=== PATIENT | female | born 1980 | race American Indian/Alaskan Native ===

== ENCOUNTER 2022-02-22 19:18 | Emergency (ER) | payer SELFPAY ==
[2022-02-22 19:44] VITALS: BP 140/93
== END 2022-02-23 04:00 | disposition left against medical advice (07) ==
LOC: ED 19:18
DX: S49.90XA Unspecified injury of shoulder and upper arm, unspecified arm, initial encounter (principal); Z53.21 Procedure and treatment not carried out due to patient leaving prior to being seen by health care provider; X58.XXXA Exposure to other specified factors, initial encounter; Y93.89 Activity, other specified; Y92.89 Other specified places as the place of occurrence of the external cause; Y99.8 Other external cause status